=== PATIENT | male | born 1965 | race Caucasian/White ===

== ENCOUNTER 2017-06-19 12:43 | Inpatient (IN) | payer OTHER ==
[~2017-06-19] VITALS: Ht 185.4 cm; Wt 106.8 kg
[2017-06-23] VITALS (9 sets, daily range): BP systolic 134–178; BP diastolic 80–93
--- NOTE | 2017-06-23 11:49 | NUR ---
PT ARRIVED TO FLOOR VIA BED @ 1145 ACCOMPANIED BY OR STAFF X 2. REPORT RECEIVED BEDSIDE FROM JOY MANZANO. PT REPORTS 5 ON PAIN SCALE TO LEFT KNEE, MUCH IMPROVED FROM RECENT MEDICATION. PT STATES "THE PAIN IS FINE." REPORTING OF CONCERNS ENCOURAGED. FALL PRECAUTIONS REINFORCED. PLAN OF CARE DISCUSSED. CALL LIGHT REVIEWED AND IN REACH. PT STATES UNDERSTANDING.
--- NOTE | 2017-06-23 13:28 | NUR ---
PT TOLERATING CLEAR LIQ DIET WELL; STATES PAIN 5/10; DOES NOT WANT PAIN MED AT THIS TIME; IVF INFUSING WITHOUT DIFFICULTY; FAMILY AT BEDSIDE; CALL LUONG WITHIN REACH; WILL CONTINUE TO MONITOR.
--- NOTE | 2017-06-23 14:00 | NUR ---
PHYSICAL THERAPY IN WITH PT
--- NOTE | 2017-06-23 14:32 | NUR ---
PT MEDICATED FOR C/O LT KNEE PAIN 04/15; VSS; CALL LUONG WITHIN REACH; WILL CONTINUE TO MONITOR.
--- NOTE | 2017-06-23 16:50 | NUR ---
REPORT RECEIVED FROM MEME, PT AWAKE ALERT AND ORIENTED SITTING UP IN BED, DRESSING TO L. KNEE CDI WITH ICE PACK IN PLACE, IVF INFUSING, CALL LUONG IN REACH.
--- NOTE | 2017-06-23 19:44 | NUR ---
BEDSIDE REPORT RECEIVED FROM JOY TINOCO. PT SITTING UP IN BED TALKING CELL PHONE. DENIES PAIN AT THIS TIME, STATING THAT HIS LEFT KNEE FEELS BETTER. RESPIRATONS EVEN AND UNLABORED. PLAN OF CARE DISCUSSED. PT ENCOURAGED TO VERBALIZE CONCERNS. STATES UNDERSTANDING. REQUESTS A WHEELCHAIR TO LEAVE FLOOR. LIABILITY FORM SIGNED. SAFETY MEASURES IN PLACE. CALL LIGHT WITHIN REACH.
--- NOTE | 2017-06-23 20:15 | NUR ---
PT OFF FLOOR IN STABLE CONDITION VIA WHEELCHAIR; SELF PROPELLING.
--- NOTE | 2017-06-23 20:31 | NUR ---
PT BACK TO FLOOR IN STABLE CONDITION. TRANSFERED WITH SUPERISION BACK TO BED. NO REQUESTS AT THIS TIME.
--- NOTE | 2017-06-24 00:32 | NUR ---
PT ASLEEP AT THIS TIME. NO SIGNS OF DISTRESS NOTED. RESPIRATIONS EVEN AND UNLABORED. SAFETY MEASURES IN PLACE. ICE APPLIED TO LEFT KNEE. CALL LIGHT WITHIN REACH.
--- NOTE | 2017-06-24 04:09 | NUR ---
PT ASLEEP AT THIS TIME. NO SIGNS OF DISTRESS NOTED. RESPIRATIONS EVEN AND UNLABORED ON ROOM AIR. NO CHANGES IN ASSESSMENT NOTED. ICE PACK APPLIED TO LEFT KNEE; ELEVATED ON PILLOWS. SAFETY MEASURES REMAIN IN PLACE. CALL LIGHT WITHIN REACH.
[2017-06-24 04:27] VITALS: BP 142/85
[2017-06-24 06:52] LABS: HEMOGLOBIN 15.3 g/dl (14.0-18.0); MEAN CORPUSCULAR HGB 33.3 pG CALC (26.0-32.0); MEAN CORPUSCULAR HGB CONC 33.3 g/L CALC (32.0-36.0); RED BLOOD COUNT 4.6 mill/uL (4.70-6.10); RED CELL DISTRI WIDTH 13.2 % (11.5-15.5)
[2017-06-24 07:07] LABS: ANION GAP 13 (6-22 (CALC)); BUN 13 mg/dL (9-20); BUN/CREATININE RATIO 16 (12-20 (CALC)); CALCIUM 8.9 mg/dL (8.4-10.2); CARBON DIOXIDE 32 mmol/l (22-30); CHLORIDE 102 mmol/l (95-108); CREATININE 0.9 mg/dL (0.7-1.3); GFR > 60 ML/MIN (>=60 (CALC)); GFR FOR AFR.AMER. > 60 ML/MIN (>=60 (CALC)); GLUCOSE 64 mg/dL (75-110); POTASSIUM 4.5 mmol/l (3.5-5.1); SODIUM 142 mmol/l (137-146)
--- NOTE | 2017-06-24 07:30 | NUR ---
BS REPORT RECEIVED, PT.IN BED ASLEEP AT THIS TIME, NO S/S OF DISTRESS, CALL LIGHT W/IN REACH
[2017-06-24 08:20] VITALS: BP 142/75
--- NOTE | 2017-06-24 08:35 | NUR ---
PT.UP AMBULATING HALLWAY W/PT.ASSISTING.
--- NOTE | 2017-06-24 10:39 | NUR ---
Patient was seen and treated today. Patient expressed that his left knee is sore because he walked a few minutes ago prior to physical therapy. Left knee pain 10/10 prior to start of physical therapy. Physical Therapy Management: 1. Ankle pumps x 15 repetitions 2. Quad setting x 5 seconds hold x 10 repetitions 3, Hamstring setting x 5 seconds x 10 repetitions 3. Passive stetching of the left knee into full extension 5 minutes. 4. Active-assistive range of motion of the left knee 4.1 Hip and knee flexion x 10 repetitions x 2 sets Patient was able to perform all exercises but remained sore throughout physical therapy session. Fall precautions discussed. Patient verbalized understanding.
[2017-06-24] MEDS ORDERED: PERCOCET 10/31 COMBO PO (11:50)
[2017-06-24] MEDS ORDERED: ASPIRIN EC325 MG PO (11:50)
--- NOTE | 2017-06-24 14:08 | NUR ---
PT.DC COMPLETE, WAITING FOR RIDE TO ARRIVE.
--- NOTE | 2017-06-24 14:21 | NUR ---
PT.DISCHARGED AND OFF THE FLOOR VIA WHEELCHAIR, IN GOOD CONDITION ACCOMPANIED BY STAFF AND FAMILY
--- NOTE | 2017-06-24 15:14 | NUR ---
Patient was seen and treated today. Left knee still feels sore. Physical Therapy Management: 1. Ankle pumps x 15 repetitions 2. Quad-setting x 5 seconds hold x 5 repetitions 3. Hamstring-setting x 5 seconds hold x 5 repetitions] 4. Passive stretching of the let knee into full extension x 5 minutes 5. Active-asssitive range of motion of the left knee. 5.1 Left hip and knee flexion x 15 repetitions 6. Supine to sit and sit to supine x 2 repetitions with verbal cues. 7. Sit to stand and stand to sit x 4 repetitions 8. Standing balance/tolerance x 2 repetitions 9. Gait training with rolling walker and contact guard assist approximately 50 feet. Verbal cues also given for safety. Patient was able to perform all exercises with minimal fatigue. Uneven step length and unequal weigh-bearing observed during gait training. Further gait training needed. Fall precautions reviewed, patient verbalized understanding.
== END 2017-06-24 14:21 | disposition home or self-care (01) | DRG 470 ==
LOC: MS2 06-23 05:58 → EDUNIT# 06-23 12:00 → MS2 06-23 12:00
PROVIDERS: Internal Medicine; ADMIT Orthopaedic Surgery; ATTEND Orthopaedic Surgery
PROC: 0SRD0J9 Replacement of Left Knee Joint with Synthetic Substitute, Cemented, Open Approach (ICD-10-PCS; principal; 2017-06-23)
DX: M17.12 Unilateral primary osteoarthritis, left knee (principal); M23.204 Derangement of unspecified medial meniscus due to old tear or injury, left knee; Z87.891 Personal history of nicotine dependence; Z72.89 Other problems related to lifestyle
CPT/HCPCS: J2270